=== PATIENT | female | born 1990 | race Caucasian/White ===

== ENCOUNTER 2022-04-26 14:46 | Emergency (ER) | payer SELFPAY ==
[~2022-04-26] VITALS: Ht 160 cm; Wt 52.2 kg
[2022-04-26] MEDS ORDERED: MORPHINE SULFATE 4 MG/ML SYR IVP ONE (15:05)
[2022-04-26] MEDS ORDERED: ONDANSETRON 4 MG/2 ML VIAL IVP ONE (15:05)
[2022-04-26 15:06] VITALS: BP 119/74
[2022-04-26] MEDS ORDERED: ONDANSETRON 4 MG ODT PO ONE (15:10)
[2022-04-26] MEDS ORDERED: MORPHINE SULFATE 4 MG/ML SYR IM ONE (15:10)
[2022-04-26 15:15] VITALS: BP 119/74
--- NOTE | 2022-04-26 15:15 | NUR ---
Patient does not wish to proceed with medical care recommended by DR ANNE. Patient given information related to possible complications, up to and including , which could occur as a result of leaving hospital at this time. Patient verbalizes understanding of risks involved leaving against medical advice. Patient has signed AMA form.
== END 2022-04-26 15:15 | disposition left against medical advice (07) ==
LOC: MED 14:46
DX: R10.9 Unspecified abdominal pain (principal); R50.9 Fever, unspecified
CPT/HCPCS: 96372; 99283; J2270; Q0162; J2405